=== PATIENT | female | born 1945 | race Caucasian/White ===

== ENCOUNTER → 2023-11-03 10:08 | Outpatient (REF) | payer MEDICARE, BC, SELFPAY | LOC: HWWDC 10:08 | PROVIDERS: ATTENDING PHYSICIAN Obstetrics & Gynecology Gynecology; FAMILY PHYSICIAN Family Medicine | DX: Z12.31 Encounter for screening mammogram for malignant neoplasm of breast (principal) | CPT/HCPCS: 77063; 77067 ==

== ENCOUNTER → 2024-11-10 09:17 | Outpatient (REF) | payer MEDICARE, BC, SELFPAY | LOC: HWCARD 09:17 | PROVIDERS: ATTENDING PHYSICIAN Nurse Practitioner Psychiatric/Mental Health; FAMILY PHYSICIAN Family Medicine | DX: Z79.899 Other long term (current) drug therapy (principal) | CPT/HCPCS: 93005 ==

== ENCOUNTER → 2024-11-12 09:45 | Outpatient (REF) | payer MEDICARE, BC, SELFPAY | LOC: HWWDC 09:45 | PROVIDERS: ATTENDING PHYSICIAN Obstetrics & Gynecology Gynecology; REFERRING PHYSICIAN Family Medicine | DX: Z12.31 Encounter for screening mammogram for malignant neoplasm of breast (principal); M81.0 Age-related osteoporosis without current pathological fracture | CPT/HCPCS: 77063; 77067 ==